=== PATIENT | female | born 1945 | race Caucasian/White ===

== ENCOUNTER 2016-09-20 09:50 | Outpatient (CLI) | payer MEDICARE | END 2016-09-20 09:51 | disposition home or self-care (01) | DX: I82.409 Acute embolism and thrombosis of unspecified deep veins of unspecified lower extremity (principal); D68.52 Prothrombin gene mutation ==

== ENCOUNTER 2016-10-18 09:54 | Outpatient (CLI) | payer MEDICARE | END 2016-10-18 09:55 | disposition home or self-care (01) | DX: I82.409 Acute embolism and thrombosis of unspecified deep veins of unspecified lower extremity (principal); D68.52 Prothrombin gene mutation ==

== ENCOUNTER 2016-11-15 09:38 | Outpatient (CLI) | payer MEDICARE | END 2016-11-15 09:39 | disposition home or self-care (01) | DX: I82.409 Acute embolism and thrombosis of unspecified deep veins of unspecified lower extremity (principal); D68.52 Prothrombin gene mutation ==

== ENCOUNTER 2016-12-13 09:29 | Outpatient (CLI) | payer MEDICARE | END 2016-12-13 09:30 | disposition home or self-care (01) | DX: I82.409 Acute embolism and thrombosis of unspecified deep veins of unspecified lower extremity (principal); D68.52 Prothrombin gene mutation ==

== ENCOUNTER 2016-12-27 08:17 | Outpatient (CLI) | payer MEDICARE | END 2016-12-27 08:18 | disposition home or self-care (01) | DX: I82.409 Acute embolism and thrombosis of unspecified deep veins of unspecified lower extremity (principal); D68.52 Prothrombin gene mutation ==

== ENCOUNTER 2017-01-17 09:35 | Outpatient (CLI) | payer MEDICARE | END 2017-01-17 09:36 | disposition home or self-care (01) | DX: I82.409 Acute embolism and thrombosis of unspecified deep veins of unspecified lower extremity (principal); D68.52 Prothrombin gene mutation ==

== ENCOUNTER 2017-02-14 09:28 | Outpatient (CLI) | payer MEDICARE | END 2017-02-14 09:29 | disposition home or self-care (01) | LOC: LAB.F 09:28 | PROVIDERS: ATTEND Family Medicine | DX: I82.409 Acute embolism and thrombosis of unspecified deep veins of unspecified lower extremity (principal); D68.52 Prothrombin gene mutation | CPT/HCPCS: 85610 ==

== ENCOUNTER 2017-03-14 10:14 | Outpatient (CLI) | payer MEDICARE | END 2017-03-14 10:15 | disposition home or self-care (01) | LOC: LAB.F 10:14 | PROVIDERS: ATTEND Family Medicine | DX: I82.409 Acute embolism and thrombosis of unspecified deep veins of unspecified lower extremity (principal) | CPT/HCPCS: 85610 ==

== ENCOUNTER 2017-04-12 10:01 | Outpatient (CLI) | payer MEDICARE | END 2017-04-12 10:02 | disposition home or self-care (01) | LOC: LAB.F 10:01 | PROVIDERS: ATTEND Family Medicine | DX: I82.409 Acute embolism and thrombosis of unspecified deep veins of unspecified lower extremity (principal); D68.52 Prothrombin gene mutation | CPT/HCPCS: 85610 ==

== ENCOUNTER 2017-05-17 10:40 | Outpatient (CLI) | payer MEDICARE | END 2017-05-17 10:41 | disposition home or self-care (01) | LOC: LAB.F 10:40 | PROVIDERS: ATTEND Family Medicine | DX: I82.409 Acute embolism and thrombosis of unspecified deep veins of unspecified lower extremity (principal); D68.52 Prothrombin gene mutation | CPT/HCPCS: 85610 ==

== ENCOUNTER 2017-06-14 09:47 | Outpatient (CLI) | payer MEDICARE | END 2017-06-14 09:48 | disposition home or self-care (01) | LOC: LAB.F 09:47 | PROVIDERS: ATTEND Family Medicine | DX: I82.409 Acute embolism and thrombosis of unspecified deep veins of unspecified lower extremity (principal); D68.52 Prothrombin gene mutation | CPT/HCPCS: 85610 ==

== ENCOUNTER 2017-08-08 09:53 | Outpatient (CLI) | payer MEDICARE | END 2017-08-08 09:54 | disposition home or self-care (01) | LOC: LAB.F 09:53 | PROVIDERS: ATTEND Family Medicine | DX: I82.409 Acute embolism and thrombosis of unspecified deep veins of unspecified lower extremity (principal); D68.52 Prothrombin gene mutation | CPT/HCPCS: 85610 ==

== ENCOUNTER 2017-09-06 09:47 | Outpatient (CLI) | payer MEDICARE | END 2017-09-06 09:48 | disposition home or self-care (01) | LOC: LAB.F 09:47 | PROVIDERS: ATTEND Family Medicine | DX: I82.409 Acute embolism and thrombosis of unspecified deep veins of unspecified lower extremity (principal); D68.52 Prothrombin gene mutation | CPT/HCPCS: 85610 ==

== ENCOUNTER 2017-10-05 09:50 | Outpatient (CLI) | payer MEDICARE | END 2017-10-05 09:51 | disposition home or self-care (01) | LOC: LAB.F 09:50 | PROVIDERS: ATTEND Family Medicine | DX: I82.409 Acute embolism and thrombosis of unspecified deep veins of unspecified lower extremity (principal); D68.52 Prothrombin gene mutation | CPT/HCPCS: 85610 ==

== ENCOUNTER 2017-10-24 09:38 | Outpatient (CLI) | payer MEDICARE | END 2017-10-24 09:39 | disposition home or self-care (01) | LOC: LAB.F 09:38 | PROVIDERS: ATTEND Family Medicine | DX: I82.409 Acute embolism and thrombosis of unspecified deep veins of unspecified lower extremity (principal); D68.52 Prothrombin gene mutation | CPT/HCPCS: 85610 ==

== ENCOUNTER 2017-11-23 09:54 | Outpatient (CLI) | payer MEDICARE | END 2017-11-23 09:55 | disposition home or self-care (01) | LOC: LAB.F 09:54 | PROVIDERS: ATTEND Family Medicine | DX: I82.409 Acute embolism and thrombosis of unspecified deep veins of unspecified lower extremity (principal); D68.52 Prothrombin gene mutation | CPT/HCPCS: 85610 ==

== ENCOUNTER 2017-12-21 09:36 | Outpatient (CLI) | payer MEDICARE | END 2017-12-21 09:37 | disposition home or self-care (01) | LOC: LAB.F 09:36 | PROVIDERS: ATTEND Family Medicine | DX: I82.409 Acute embolism and thrombosis of unspecified deep veins of unspecified lower extremity (principal); D68.52 Prothrombin gene mutation | CPT/HCPCS: 85610 ==

== ENCOUNTER 2018-01-04 10:07 | Outpatient (CLI) | payer MEDICARE | END 2018-01-04 10:08 | disposition home or self-care (01) | LOC: LAB.F 10:07 | PROVIDERS: ATTEND Family Medicine | DX: I82.409 Acute embolism and thrombosis of unspecified deep veins of unspecified lower extremity (principal); D68.52 Prothrombin gene mutation | CPT/HCPCS: 85610 ==

== ENCOUNTER 2018-01-18 07:57 | Outpatient (CLI) | payer MEDICARE | END 2018-01-18 07:58 | disposition home or self-care (01) | LOC: LAB.F 07:57 | PROVIDERS: ATTEND Family Medicine | DX: I82.409 Acute embolism and thrombosis of unspecified deep veins of unspecified lower extremity (principal); D68.52 Prothrombin gene mutation | CPT/HCPCS: 85610 ==

== ENCOUNTER 2018-02-01 09:40 | Outpatient (CLI) | payer MEDICARE | END 2018-02-01 09:41 | disposition home or self-care (01) | LOC: LAB.F 09:40 | PROVIDERS: ATTEND Family Medicine | DX: I82.409 Acute embolism and thrombosis of unspecified deep veins of unspecified lower extremity (principal); D68.52 Prothrombin gene mutation | CPT/HCPCS: 85610 ==

== ENCOUNTER 2018-02-15 09:50 | Outpatient (CLI) | payer MEDICARE | END 2018-02-15 09:51 | disposition home or self-care (01) | LOC: LAB.F 09:50 | PROVIDERS: ATTEND Family Medicine | DX: I82.409 Acute embolism and thrombosis of unspecified deep veins of unspecified lower extremity (principal); D68.52 Prothrombin gene mutation | CPT/HCPCS: 85610 ==

== ENCOUNTER 2018-03-01 09:49 | Outpatient (CLI) | payer MEDICARE | END 2018-03-01 09:50 | disposition home or self-care (01) | LOC: LAB.F 09:49 | PROVIDERS: ATTEND Family Medicine | DX: I82.409 Acute embolism and thrombosis of unspecified deep veins of unspecified lower extremity (principal); D68.52 Prothrombin gene mutation | CPT/HCPCS: 85610 ==

== ENCOUNTER 2018-03-14 09:41 | Outpatient (CLI) | payer MEDICARE | END 2018-03-14 09:42 | disposition home or self-care (01) | LOC: LAB.F 09:41 | PROVIDERS: ATTEND Family Medicine | DX: I82.409 Acute embolism and thrombosis of unspecified deep veins of unspecified lower extremity (principal); D68.52 Prothrombin gene mutation | CPT/HCPCS: 85610 ==

== ENCOUNTER 2018-04-05 09:48 | Outpatient (CLI) | payer MEDICARE | END 2018-04-05 09:49 | disposition home or self-care (01) | LOC: LAB.F 09:48 | PROVIDERS: ATTEND Family Medicine | DX: I82.409 Acute embolism and thrombosis of unspecified deep veins of unspecified lower extremity (principal); D68.52 Prothrombin gene mutation | CPT/HCPCS: 85610 ==

== ENCOUNTER 2018-04-26 09:35 | Outpatient (CLI) | payer MEDICARE | END 2018-04-26 09:36 | disposition home or self-care (01) | LOC: LAB.F 09:35 | PROVIDERS: ATTEND Family Medicine | DX: I82.409 Acute embolism and thrombosis of unspecified deep veins of unspecified lower extremity (principal); D68.52 Prothrombin gene mutation | CPT/HCPCS: 85610 ==

== ENCOUNTER 2018-05-17 09:16 | Outpatient (CLI) | payer MEDICARE | END 2018-05-17 09:17 | disposition home or self-care (01) | LOC: LAB.F 09:16 | PROVIDERS: ATTEND Family Medicine | DX: I82.409 Acute embolism and thrombosis of unspecified deep veins of unspecified lower extremity (principal); D68.52 Prothrombin gene mutation | CPT/HCPCS: 85610 ==

== ENCOUNTER 2018-06-13 09:44 | Outpatient (CLI) | payer MEDICARE | END 2018-06-13 09:45 | disposition home or self-care (01) | LOC: LAB.F 09:44 | PROVIDERS: ATTEND Family Medicine | DX: I82.409 Acute embolism and thrombosis of unspecified deep veins of unspecified lower extremity (principal); D68.52 Prothrombin gene mutation | CPT/HCPCS: 85610 ==

== ENCOUNTER 2018-07-04 10:12 | Outpatient (CLI) | payer MEDICARE | END 2018-07-04 10:13 | disposition home or self-care (01) | LOC: LAB.F 10:12 | PROVIDERS: ATTEND Family Medicine | DX: I82.409 Acute embolism and thrombosis of unspecified deep veins of unspecified lower extremity (principal); D68.52 Prothrombin gene mutation | CPT/HCPCS: 85610 ==

== ENCOUNTER 2018-08-01 10:08 | Outpatient (CLI) | payer MEDICARE | END 2018-08-01 10:09 | disposition home or self-care (01) | LOC: LAB.F 10:08 | PROVIDERS: ATTEND Family Medicine | DX: I82.409 Acute embolism and thrombosis of unspecified deep veins of unspecified lower extremity (principal); D68.52 Prothrombin gene mutation | CPT/HCPCS: 85610 ==

== ENCOUNTER 2018-08-28 09:51 | Outpatient (CLI) | payer MEDICARE | END 2018-08-28 09:52 | disposition home or self-care (01) | LOC: LAB.F 09:51 | PROVIDERS: ATTEND Family Medicine | DX: I82.409 Acute embolism and thrombosis of unspecified deep veins of unspecified lower extremity (principal); D68.52 Prothrombin gene mutation | CPT/HCPCS: 85610 ==

== ENCOUNTER 2018-09-25 09:52 | Outpatient (CLI) | payer MEDICARE | END 2018-09-25 09:53 | disposition home or self-care (01) | LOC: LAB.F 09:52 | PROVIDERS: ATTEND Family Medicine | DX: I82.409 Acute embolism and thrombosis of unspecified deep veins of unspecified lower extremity (principal); D68.52 Prothrombin gene mutation | CPT/HCPCS: 85610 ==

== ENCOUNTER 2018-10-23 09:24 | Outpatient (CLI) | payer MEDICARE | END 2018-10-23 09:25 | disposition home or self-care (01) | LOC: LAB.F 09:24 | PROVIDERS: ATTEND Family Medicine | DX: Z53.9 Procedure and treatment not carried out, unspecified reason (principal) ==

== ENCOUNTER 2018-11-07 08:00 | Outpatient (CLI) | payer MEDICARE | END 2018-11-07 23:59 | disposition home or self-care (01) | LOC: LAB.F 08:00 | PROVIDERS: ATTEND Family Medicine | DX: I82.409 Acute embolism and thrombosis of unspecified deep veins of unspecified lower extremity (principal); D68.52 Prothrombin gene mutation | CPT/HCPCS: 85610 ==

== ENCOUNTER 2018-11-28 10:08 | Outpatient (CLI) | payer MEDICARE, OTHER | END 2018-11-28 10:09 | disposition home or self-care (01) | LOC: LAB.F 10:08 | PROVIDERS: ATTEND Family Medicine | DX: I82.409 Acute embolism and thrombosis of unspecified deep veins of unspecified lower extremity (principal); D68.52 Prothrombin gene mutation | CPT/HCPCS: 85610 ==

== ENCOUNTER 2018-12-19 10:10 | Outpatient (CLI) | payer MEDICARE, OTHER | END 2018-12-19 10:11 | disposition home or self-care (01) | LOC: LAB.F 10:10 | PROVIDERS: ATTEND Family Medicine | DX: I82.409 Acute embolism and thrombosis of unspecified deep veins of unspecified lower extremity (principal); D68.52 Prothrombin gene mutation | CPT/HCPCS: 85610 ==

== ENCOUNTER 2019-01-16 09:33 | Outpatient (CLI) | payer MEDICARE, OTHER | END 2019-01-16 09:34 | disposition home or self-care (01) | LOC: LAB.F 09:33 | PROVIDERS: ATTEND Family Medicine | DX: I82.409 Acute embolism and thrombosis of unspecified deep veins of unspecified lower extremity (principal); D68.52 Prothrombin gene mutation | CPT/HCPCS: 85610 ==

== ENCOUNTER 2019-02-13 10:11 | Outpatient (CLI) | payer MEDICARE, OTHER | END 2019-02-13 10:12 | disposition home or self-care (01) | LOC: LAB.F 10:11 | PROVIDERS: ATTEND Family Medicine | DX: I82.409 Acute embolism and thrombosis of unspecified deep veins of unspecified lower extremity (principal); D68.52 Prothrombin gene mutation | CPT/HCPCS: 85610 ==

== ENCOUNTER 2019-03-13 09:51 | Outpatient (CLI) | payer MEDICARE, OTHER | END 2019-03-13 09:52 | disposition home or self-care (01) | LOC: LAB.S 09:51 | PROVIDERS: ATTEND Family Medicine | DX: I82.409 Acute embolism and thrombosis of unspecified deep veins of unspecified lower extremity (principal); D68.52 Prothrombin gene mutation | CPT/HCPCS: 85610 ==

== ENCOUNTER 2019-04-10 07:59 | Outpatient (CLI) | payer MEDICARE, OTHER | END 2019-04-10 08:00 | disposition home or self-care (01) | LOC: LAB.S 07:59 | PROVIDERS: ATTEND Family Medicine | DX: I82.409 Acute embolism and thrombosis of unspecified deep veins of unspecified lower extremity (principal); D68.52 Prothrombin gene mutation | CPT/HCPCS: 85610 ==

== ENCOUNTER 2019-05-15 08:52 | Outpatient (CLI) | payer MEDICARE, OTHER | END 2019-05-15 08:53 | disposition home or self-care (01) | LOC: LAB.S 08:52 | PROVIDERS: ATTEND Family Medicine | DX: I82.409 Acute embolism and thrombosis of unspecified deep veins of unspecified lower extremity (principal); D68.52 Prothrombin gene mutation | CPT/HCPCS: 85610 ==

== ENCOUNTER 2019-06-12 10:02 | Outpatient (CLI) | payer MEDICARE, OTHER | END 2019-06-12 10:03 | disposition home or self-care (01) | LOC: LAB.S 10:02 | PROVIDERS: ATTEND Family Medicine | DX: I82.409 Acute embolism and thrombosis of unspecified deep veins of unspecified lower extremity (principal); D68.52 Prothrombin gene mutation | CPT/HCPCS: 85610 ==

== ENCOUNTER 2019-07-10 08:06 | Outpatient (CLI) | payer MEDICARE, OTHER | END 2019-07-10 08:07 | disposition home or self-care (01) | LOC: LAB.S 08:06 | PROVIDERS: ATTEND Family Medicine | DX: I82.409 Acute embolism and thrombosis of unspecified deep veins of unspecified lower extremity (principal); D68.52 Prothrombin gene mutation | CPT/HCPCS: 85610 ==

== ENCOUNTER 2019-08-07 08:15 | Outpatient (CLI) | payer MEDICARE, OTHER | END 2019-08-07 08:16 | disposition home or self-care (01) | LOC: LAB.S 08:15 | PROVIDERS: ATTEND Family Medicine | DX: I82.409 Acute embolism and thrombosis of unspecified deep veins of unspecified lower extremity (principal); D68.52 Prothrombin gene mutation | CPT/HCPCS: 85610 ==

== ENCOUNTER 2019-09-04 09:30 | Outpatient (CLI) | payer MEDICARE, OTHER | END 2019-09-04 09:31 | disposition home or self-care (01) | LOC: LAB.S 09:30 | PROVIDERS: ATTEND Family Medicine | DX: I82.409 Acute embolism and thrombosis of unspecified deep veins of unspecified lower extremity (principal); D68.52 Prothrombin gene mutation | CPT/HCPCS: 85610 ==

== ENCOUNTER 2019-10-02 09:36 | Outpatient (CLI) | payer MEDICARE, OTHER | END 2019-10-02 09:37 | disposition home or self-care (01) | LOC: LAB.S 09:36 | PROVIDERS: ATTEND Family Medicine | DX: I82.409 Acute embolism and thrombosis of unspecified deep veins of unspecified lower extremity (principal); D68.52 Prothrombin gene mutation | CPT/HCPCS: 85610 ==

== ENCOUNTER 2019-10-23 09:37 | Outpatient (CLI) | payer MEDICARE, OTHER | END 2019-10-23 09:38 | disposition home or self-care (01) | LOC: LAB.S 09:37 | PROVIDERS: ATTEND Family Medicine | DX: I82.409 Acute embolism and thrombosis of unspecified deep veins of unspecified lower extremity (principal); D68.52 Prothrombin gene mutation | CPT/HCPCS: 85610 ==

== ENCOUNTER 2019-11-20 08:12 | Outpatient (CLI) | payer MEDICARE, OTHER | END 2019-11-20 08:13 | disposition home or self-care (01) | LOC: LAB.S 08:12 | PROVIDERS: ATTEND Family Medicine | DX: I82.409 Acute embolism and thrombosis of unspecified deep veins of unspecified lower extremity (principal); D68.52 Prothrombin gene mutation | CPT/HCPCS: 85610 ==

== ENCOUNTER 2020-02-06 13:48 | Outpatient (CLI) | payer MEDICARE, OTHER | END 2020-02-06 13:49 | disposition home or self-care (01) | LOC: LAB.S 13:48 | PROVIDERS: ATTEND Family Medicine | DX: I82.409 Acute embolism and thrombosis of unspecified deep veins of unspecified lower extremity (principal) | CPT/HCPCS: 85610 ==

== ENCOUNTER 2020-03-11 08:25 | Outpatient (CLI) | payer MEDICARE, OTHER | END 2020-03-11 08:26 | disposition home or self-care (01) | LOC: LAB.S 08:25 | PROVIDERS: ATTEND Family Medicine | DX: I82.409 Acute embolism and thrombosis of unspecified deep veins of unspecified lower extremity (principal) | CPT/HCPCS: 85610 ==

== ENCOUNTER 2020-05-14 08:18 | Outpatient (CLI) | payer MEDICARE, OTHER | END 2020-05-14 08:19 | disposition home or self-care (01) | LOC: LAB.S 08:18 | PROVIDERS: ATTEND Family Medicine | DX: I82.409 Acute embolism and thrombosis of unspecified deep veins of unspecified lower extremity (principal) | CPT/HCPCS: 85610 ==

== ENCOUNTER 2020-06-25 08:22 | Outpatient (CLI) | payer MEDICARE, OTHER | END 2020-06-25 08:23 | disposition home or self-care (01) | LOC: LAB.S 08:22 | PROVIDERS: ATTEND Family Medicine | DX: I82.409 Acute embolism and thrombosis of unspecified deep veins of unspecified lower extremity (principal) | CPT/HCPCS: 85610 ==

== ENCOUNTER 2020-08-05 08:53 | Outpatient (CLI) | payer MEDICARE, OTHER | END 2020-08-05 08:54 | disposition home or self-care (01) | LOC: LAB.S 08:53 | PROVIDERS: ATTEND Family Medicine | DX: I82.409 Acute embolism and thrombosis of unspecified deep veins of unspecified lower extremity (principal) | CPT/HCPCS: 85610 ==

== ENCOUNTER 2020-09-23 09:21 | Outpatient (CLI) | payer MEDICARE, OTHER | END 2020-09-23 09:22 | disposition home or self-care (01) | LOC: LAB.S 09:21 | PROVIDERS: ATTEND Family Medicine | DX: I82.409 Acute embolism and thrombosis of unspecified deep veins of unspecified lower extremity (principal) | CPT/HCPCS: 85610 ==

== ENCOUNTER 2020-11-04 08:02 | Outpatient (CLI) | payer MEDICARE, OTHER | END 2020-11-04 08:03 | disposition home or self-care (01) | LOC: LAB.S 08:02 | PROVIDERS: ATTEND Family Medicine | DX: I82.409 Acute embolism and thrombosis of unspecified deep veins of unspecified lower extremity (principal) | CPT/HCPCS: 85610 ==

== ENCOUNTER 2020-12-15 08:35 | Outpatient (CLI) | payer MEDICARE, OTHER | END 2020-12-15 08:36 | disposition home or self-care (01) | LOC: LAB.S 08:35 | PROVIDERS: ATTEND Family Medicine | DX: I82.409 Acute embolism and thrombosis of unspecified deep veins of unspecified lower extremity (principal) | CPT/HCPCS: 85610 ==

== ENCOUNTER 2021-01-05 08:23 | Outpatient (CLI) | payer MEDICARE, OTHER | END 2021-01-05 08:24 | disposition home or self-care (01) | LOC: LAB.S 08:23 | PROVIDERS: ATTEND Family Medicine | DX: I82.409 Acute embolism and thrombosis of unspecified deep veins of unspecified lower extremity (principal) | CPT/HCPCS: 36416; 85610 ==

== ENCOUNTER 2021-02-10 08:00 | Outpatient (CLI) | payer MEDICARE, OTHER | END 2021-02-10 08:01 | disposition home or self-care (01) | LOC: LAB.S 08:00 | PROVIDERS: ATTEND Family Medicine | DX: I82.409 Acute embolism and thrombosis of unspecified deep veins of unspecified lower extremity (principal) | CPT/HCPCS: 36416; 85610 ==

== ENCOUNTER 2021-03-25 08:50 | Outpatient (CLI) | payer MEDICARE, OTHER | END 2021-03-25 08:51 | disposition home or self-care (01) | LOC: LAB 08:50 | PROVIDERS: ATTEND Family Medicine | DX: Z51.81 Encounter for therapeutic drug level monitoring (principal); Z79.01 Long term (current) use of anticoagulants | CPT/HCPCS: 36416; 85610 ==

== ENCOUNTER 2021-05-04 08:59 | Outpatient (CLI) | payer MEDICARE, OTHER | END 2021-05-04 09:00 | disposition home or self-care (01) | LOC: LAB.S 08:59 | PROVIDERS: ATTEND Family Medicine | DX: Z51.81 Encounter for therapeutic drug level monitoring (principal); Z79.01 Long term (current) use of anticoagulants | CPT/HCPCS: 36416; 85610 ==

== ENCOUNTER 2021-06-17 08:18 | Outpatient (CLI) | payer MEDICARE, OTHER | END 2021-06-17 08:19 | disposition home or self-care (01) | LOC: LAB.S 08:18 | PROVIDERS: ATTEND Family Medicine | DX: Z51.81 Encounter for therapeutic drug level monitoring (principal); Z79.01 Long term (current) use of anticoagulants | CPT/HCPCS: 36416; 85610 ==

== ENCOUNTER 2021-07-29 08:04 | Outpatient (CLI) | payer MEDICARE, OTHER | END 2021-07-29 08:05 | disposition home or self-care (01) | LOC: LAB.S 08:04 | PROVIDERS: ATTEND Family Medicine | DX: Z51.81 Encounter for therapeutic drug level monitoring (principal); Z79.01 Long term (current) use of anticoagulants | CPT/HCPCS: 36416; 85610 ==

== ENCOUNTER 2021-09-09 08:45 | Outpatient (CLI) | payer MEDICARE | END 2021-09-09 08:46 | disposition home or self-care (01) | LOC: LAB.S 08:45 | PROVIDERS: ATTEND Family Medicine | DX: Z51.81 Encounter for therapeutic drug level monitoring (principal); Z79.01 Long term (current) use of anticoagulants | CPT/HCPCS: 36416; 85610 ==

== ENCOUNTER 2021-09-24 10:05 | Outpatient (CLI) | payer MEDICARE | END 2021-09-24 10:06 | disposition home or self-care (01) | LOC: LAB.S 10:05 | PROVIDERS: ATTEND Family Medicine | DX: Z51.81 Encounter for therapeutic drug level monitoring (principal); Z79.01 Long term (current) use of anticoagulants | CPT/HCPCS: 36416; 85610 ==

== ENCOUNTER 2021-10-28 08:12 | Outpatient (CLI) | payer MEDICARE, OTHER | END 2021-10-28 08:13 | disposition home or self-care (01) | LOC: LAB.S 08:12 | PROVIDERS: ATTEND Family Medicine | DX: Z51.81 Encounter for therapeutic drug level monitoring (principal); Z79.01 Long term (current) use of anticoagulants | CPT/HCPCS: 36415; 36416; 85610 ==

== ENCOUNTER 2021-11-11 09:00 | Outpatient (CLI) | payer MEDICARE, OTHER | END 2021-11-11 09:01 | disposition home or self-care (01) | LOC: LAB.S 09:00 | PROVIDERS: ATTEND Family Medicine | DX: Z51.81 Encounter for therapeutic drug level monitoring (principal); Z79.01 Long term (current) use of anticoagulants | CPT/HCPCS: 36416; 85610 ==

== ENCOUNTER 2021-11-25 09:26 | Outpatient (CLI) | payer MEDICARE, OTHER | END 2021-11-25 09:27 | disposition home or self-care (01) | LOC: LAB.S 09:26 | PROVIDERS: ATTEND Family Medicine | DX: Z51.81 Encounter for therapeutic drug level monitoring (principal); Z79.01 Long term (current) use of anticoagulants | CPT/HCPCS: 36416; 85610 ==

== ENCOUNTER 2021-12-30 10:25 | Outpatient (CLI) | payer MEDICARE | END 2021-12-30 10:26 | disposition home or self-care (01) | LOC: LAB.S 10:25 | PROVIDERS: ATTEND Family Medicine | DX: Z51.81 Encounter for therapeutic drug level monitoring (principal); Z79.01 Long term (current) use of anticoagulants | CPT/HCPCS: 36416; 85610 ==

== ENCOUNTER 2022-01-27 17:37 | Outpatient (CLI) | payer MEDICARE | END 2022-01-27 17:38 | disposition home or self-care (01) | LOC: LAB.S 17:37 | PROVIDERS: ATTEND Family Medicine | DX: Z51.81 Encounter for therapeutic drug level monitoring (principal); Z79.01 Long term (current) use of anticoagulants | CPT/HCPCS: 36416; 85610 ==

== ENCOUNTER 2022-02-25 09:57 | Outpatient (CLI) | payer MEDICARE | END 2022-02-25 09:58 | disposition home or self-care (01) | LOC: LAB.S 09:57 | PROVIDERS: ATTEND Family Medicine | DX: Z51.81 Encounter for therapeutic drug level monitoring (principal); Z79.01 Long term (current) use of anticoagulants | CPT/HCPCS: 36416; 85610 ==

== ENCOUNTER 2022-05-04 09:54 | Outpatient (CLI) | payer MEDICARE | END 2022-05-04 09:55 | disposition home or self-care (01) | LOC: LAB.S 09:54 | PROVIDERS: ATTEND Family Medicine | DX: Z51.81 Encounter for therapeutic drug level monitoring (principal); Z79.01 Long term (current) use of anticoagulants | CPT/HCPCS: 36416; 85610 ==

== ENCOUNTER 2022-06-10 09:10 | Outpatient (CLI) | payer MEDICARE | END 2022-06-10 09:11 | disposition home or self-care (01) | LOC: LAB.S 09:10 | PROVIDERS: ATTEND Family Medicine | DX: Z51.81 Encounter for therapeutic drug level monitoring (principal); Z79.01 Long term (current) use of anticoagulants | CPT/HCPCS: 36416; 85610 ==

== ENCOUNTER 2022-06-16 09:02 | Outpatient (CLI) | payer MEDICARE | END 2022-06-16 09:03 | disposition home or self-care (01) | LOC: LAB.S 09:02 | PROVIDERS: ATTEND Family Medicine | DX: Z51.81 Encounter for therapeutic drug level monitoring (principal); Z79.01 Long term (current) use of anticoagulants | CPT/HCPCS: 36416; 85610 ==

== ENCOUNTER 2022-06-24 09:15 | Outpatient (CLI) | payer MEDICARE | END 2022-06-24 09:16 | disposition home or self-care (01) | LOC: LAB.S 09:15 | PROVIDERS: ATTEND Family Medicine | DX: Z51.81 Encounter for therapeutic drug level monitoring (principal); Z79.01 Long term (current) use of anticoagulants | CPT/HCPCS: 36416; 85610 ==

== ENCOUNTER 2022-07-01 09:25 | Outpatient (CLI) | payer MEDICARE | END 2022-07-01 09:26 | disposition home or self-care (01) | LOC: LAB.S 09:25 | PROVIDERS: ATTEND Family Medicine | DX: Z51.81 Encounter for therapeutic drug level monitoring (principal); Z79.01 Long term (current) use of anticoagulants | CPT/HCPCS: 36416; 85610 ==

== ENCOUNTER 2022-12-27 08:46 | Outpatient (CLI) | payer MEDICARE | END 2022-12-27 08:47 | disposition home or self-care (01) | LOC: LAB.S 08:46 | PROVIDERS: ATTEND Family Medicine | DX: Z51.81 Encounter for therapeutic drug level monitoring (principal); Z79.01 Long term (current) use of anticoagulants | CPT/HCPCS: 36416; 85610 ==

== ENCOUNTER 2022-12-28 08:41 | Outpatient (CLI) | payer MEDICARE | END 2022-12-28 08:42 | disposition home or self-care (01) | LOC: LAB.S 08:41 | PROVIDERS: ATTEND Family Medicine | DX: Z51.81 Encounter for therapeutic drug level monitoring (principal); Z79.01 Long term (current) use of anticoagulants | CPT/HCPCS: 36416; 85610 ==

== ENCOUNTER 2022-12-31 08:57 | Outpatient (CLI) | payer MEDICARE | END 2022-12-31 08:58 | disposition home or self-care (01) | LOC: LAB.S 08:57 | PROVIDERS: ATTEND Family Medicine | DX: Z51.81 Encounter for therapeutic drug level monitoring (principal); Z79.01 Long term (current) use of anticoagulants | CPT/HCPCS: 36416; 85610 ==

== ENCOUNTER 2023-01-04 08:41 | Outpatient (CLI) | payer MEDICARE | END 2023-01-04 08:42 | disposition home or self-care (01) | LOC: LAB.S 08:41 | PROVIDERS: ATTEND Family Medicine | DX: Z51.81 Encounter for therapeutic drug level monitoring (principal); Z79.01 Long term (current) use of anticoagulants | CPT/HCPCS: 36416; 85610 ==

== ENCOUNTER 2023-01-10 08:51 | Outpatient (CLI) | payer MEDICARE | END 2023-01-10 08:52 | disposition home or self-care (01) | LOC: LAB.S 08:51 | PROVIDERS: ATTEND Family Medicine | DX: Z51.81 Encounter for therapeutic drug level monitoring (principal); Z79.01 Long term (current) use of anticoagulants | CPT/HCPCS: 36416; 85610 ==

== ENCOUNTER 2023-01-20 08:03 | Outpatient (CLI) | payer MEDICARE | END 2023-01-20 08:04 | disposition home or self-care (01) | LOC: LAB.S 08:03 | PROVIDERS: ATTEND Family Medicine | DX: Z51.81 Encounter for therapeutic drug level monitoring (principal); Z79.01 Long term (current) use of anticoagulants | CPT/HCPCS: 36416; 85610 ==

== ENCOUNTER 2023-01-28 08:07 | Outpatient (CLI) | payer MEDICARE | END 2023-01-28 08:08 | disposition home or self-care (01) | LOC: LAB.S 08:07 | PROVIDERS: ATTEND Family Medicine | DX: Z51.81 Encounter for therapeutic drug level monitoring (principal); Z79.01 Long term (current) use of anticoagulants | CPT/HCPCS: 36416; 85610 ==

== ENCOUNTER 2023-02-03 08:34 | Outpatient (CLI) | payer MEDICARE | END 2023-02-03 08:35 | disposition home or self-care (01) | LOC: LAB.S 08:34 | PROVIDERS: ATTEND Family Medicine | DX: Z51.81 Encounter for therapeutic drug level monitoring (principal); Z79.01 Long term (current) use of anticoagulants | CPT/HCPCS: 36416; 85610 ==

== ENCOUNTER 2023-02-16 08:30 | Outpatient (CLI) | payer MEDICARE | END 2023-02-16 08:31 | disposition home or self-care (01) | LOC: LAB.S 08:30 | PROVIDERS: ATTEND Family Medicine | DX: Z51.81 Encounter for therapeutic drug level monitoring (principal); Z79.01 Long term (current) use of anticoagulants | CPT/HCPCS: 36416; 85610 ==

== ENCOUNTER 2023-03-17 08:03 | Outpatient (CLI) | payer MEDICARE | END 2023-03-17 08:04 | disposition home or self-care (01) | LOC: LAB.S 08:03 | PROVIDERS: ATTEND Family Medicine | DX: Z51.81 Encounter for therapeutic drug level monitoring (principal); Z79.01 Long term (current) use of anticoagulants | CPT/HCPCS: 36416; 85610 ==

== ENCOUNTER 2023-04-14 08:00 | Outpatient (CLI) | payer MEDICARE | END 2023-04-14 08:01 | disposition home or self-care (01) | LOC: LAB.S 08:00 | PROVIDERS: ATTEND Family Medicine | DX: Z51.81 Encounter for therapeutic drug level monitoring (principal); Z79.01 Long term (current) use of anticoagulants | CPT/HCPCS: 36416; 85610 ==

== ENCOUNTER 2023-06-08 08:26 | Outpatient (CLI) | payer MEDICARE | END 2023-06-08 08:27 | disposition home or self-care (01) | LOC: LAB.S 08:26 | PROVIDERS: ATTEND Family Medicine | DX: Z51.81 Encounter for therapeutic drug level monitoring (principal); Z79.01 Long term (current) use of anticoagulants | CPT/HCPCS: 36416; 85610 ==

== ENCOUNTER 2023-06-22 08:41 | Outpatient (CLI) | payer MEDICARE | END 2023-06-22 08:42 | disposition home or self-care (01) | LOC: LAB.S 08:41 | PROVIDERS: ATTEND Family Medicine | DX: Z51.81 Encounter for therapeutic drug level monitoring (principal); Z79.01 Long term (current) use of anticoagulants | CPT/HCPCS: 36416; 85610 ==

== ENCOUNTER 2023-06-30 09:12 | Outpatient (CLI) | payer MEDICARE | END 2023-06-30 09:13 | disposition home or self-care (01) | LOC: LAB.S 09:12 | PROVIDERS: ATTEND Family Medicine | DX: Z51.81 Encounter for therapeutic drug level monitoring (principal); Z79.01 Long term (current) use of anticoagulants | CPT/HCPCS: 36416; 85610 ==

== ENCOUNTER 2023-07-07 09:09 | Outpatient (CLI) | payer MEDICARE | END 2023-07-07 09:10 | disposition home or self-care (01) | LOC: LAB.S 09:09 | PROVIDERS: ATTEND Family Medicine | DX: Z51.81 Encounter for therapeutic drug level monitoring (principal); Z79.01 Long term (current) use of anticoagulants | CPT/HCPCS: 36416; 85610 ==

== ENCOUNTER 2023-07-21 09:36 | Outpatient (CLI) | payer MEDICARE | END 2023-07-21 09:37 | disposition home or self-care (01) | LOC: LAB.S 09:36 | PROVIDERS: ATTEND Family Medicine | DX: Z51.81 Encounter for therapeutic drug level monitoring (principal); Z79.01 Long term (current) use of anticoagulants | CPT/HCPCS: 36416; 85610 ==

== ENCOUNTER 2023-08-18 09:43 | Outpatient (CLI) | payer MEDICARE | END 2023-08-18 09:44 | disposition home or self-care (01) | LOC: LAB.S 09:43 | PROVIDERS: ATTEND Family Medicine | DX: Z51.81 Encounter for therapeutic drug level monitoring (principal); Z79.01 Long term (current) use of anticoagulants | CPT/HCPCS: 36416; 85610 ==

== ENCOUNTER 2023-09-15 09:07 | Outpatient (CLI) | payer MEDICARE | END 2023-09-15 09:08 | disposition home or self-care (01) | LOC: LAB.S 09:07 | PROVIDERS: ATTEND Family Medicine | DX: Z51.81 Encounter for therapeutic drug level monitoring (principal); Z79.01 Long term (current) use of anticoagulants | CPT/HCPCS: 36416; 85610 ==

== ENCOUNTER 2023-10-13 09:16 | Outpatient (CLI) | payer MEDICARE | END 2023-10-13 09:17 | disposition home or self-care (01) | LOC: LAB.S 09:16 | PROVIDERS: ATTEND Family Medicine | DX: Z51.81 Encounter for therapeutic drug level monitoring (principal); Z79.01 Long term (current) use of anticoagulants | CPT/HCPCS: 36416; 85610 ==

== ENCOUNTER 2023-11-10 09:04 | Outpatient (CLI) | payer MEDICARE | END 2023-11-10 09:05 | disposition home or self-care (01) | LOC: LAB.S 09:04 | PROVIDERS: ATTEND Family Medicine | DX: Z51.81 Encounter for therapeutic drug level monitoring (principal); Z79.01 Long term (current) use of anticoagulants | CPT/HCPCS: 36416; 85610 ==

== ENCOUNTER 2023-12-22 09:07 | Outpatient (CLI) | payer MEDICARE | END 2023-12-22 09:08 | disposition home or self-care (01) | LOC: LAB.S 09:07 | PROVIDERS: ATTEND Family Medicine | DX: Z51.81 Encounter for therapeutic drug level monitoring (principal); Z79.01 Long term (current) use of anticoagulants | CPT/HCPCS: 36416; 85610 ==

== ENCOUNTER 2024-01-25 08:52 | Outpatient (CLI) | payer MEDICARE | END 2024-01-25 08:53 | disposition home or self-care (01) | LOC: LAB.S 08:52 | PROVIDERS: ATTEND Family Medicine | DX: Z51.81 Encounter for therapeutic drug level monitoring (principal); Z79.01 Long term (current) use of anticoagulants | CPT/HCPCS: 36416; 85610 ==

== ENCOUNTER 2024-02-22 09:22 | Outpatient (CLI) | payer MEDICARE | END 2024-02-22 09:23 | disposition home or self-care (01) | LOC: LAB.S 09:22 | PROVIDERS: ATTEND Family Medicine | DX: Z51.81 Encounter for therapeutic drug level monitoring (principal); Z79.01 Long term (current) use of anticoagulants | CPT/HCPCS: 36416; 85610 ==

== ENCOUNTER 2024-04-04 09:05 | Outpatient (CLI) | payer MEDICARE | END 2024-04-04 09:06 | disposition home or self-care (01) | LOC: LAB.S 09:05 | PROVIDERS: ATTEND Family Medicine | DX: Z51.81 Encounter for therapeutic drug level monitoring (principal); Z79.01 Long term (current) use of anticoagulants | CPT/HCPCS: 85610 ==

== ENCOUNTER 2024-05-16 08:33 | Outpatient (CLI) | payer MEDICARE | END 2024-05-16 08:34 | disposition home or self-care (01) | LOC: LAB.S 08:33 | PROVIDERS: ATTEND Family Medicine | DX: Z51.81 Encounter for therapeutic drug level monitoring (principal); Z79.01 Long term (current) use of anticoagulants | CPT/HCPCS: 36416; 85610 ==